=== PATIENT | female | born 1970 | race Caucasian/White ===

== ENCOUNTER 2017-01-20 19:30 | Observation (INO) | payer OTHER ==
[~2017-01-20] VITALS: Ht 167.6 cm; Wt 87.0 kg
--- NOTE | 2017-01-21 19:59 | ER ---
ADMIT: 01/20/2017 RM/LOC: 432 [facility] MR#: [id number] [id number] [facility] [address] [place], [place] [id number] [address] [place] [address] Emergency Room Report SEX: F AGE: 46 : 1970 DATE: 01/20/2017 The patient is a 46-year-old female with a history of diabetes, but brought here by EMS because of altered mental status, hypoglycemia, and seizure. Allegedly, noticed that the patient was weak at home and while he got into room after some time, he noticed that the patient is altered on the floor. He mentions he did not hear any fall, called ambulance and per EMS, the patient had very low blood sugar, was given 1 amp of D50. After that, the patient had generalized clonic seizing, shaking all over and received 2 doses of 5 mg of diazepam and per EMS, the seizing stopped, but the patient vomited meanwhile and after that, they heard the gurgling sound during the breathing. Per EMS en route, the patient had O2 saturation of mid 80s to high 80s and was put on non-rebreather mask, which went to low 90s. In the ER, the patient had clenched teeth with closed eyes, but has good gag reflex. The patient did not let us open the mouth. We tried different ways just trying to suction the mouth. The patient had O2 saturation of mid 80s in room air and in the non- rebreather mask, went to 93%. Blood pressure systolic was 110 and on capnography, the patient had CO2 level of 44. The patient received 1 dose of Ativan 1 mg IV, and also the patient's fingerstick blood sugar was checked, which was 70 and the patient received 50 mL of D10 solution bolus. The patient instantly was put on C-collar after coming to the ER and was sent for CT of the head and C-spine. Meanwhile, during all the time before going to the CT, the patient's airway was open with chin-lift and jaw-thrust, mostly with the jaw-thrust. CT of the head and neck was negative for any trauma. Chest x-ray was questionable for possible right lung haziness, infiltration. The patient received 1 L of D5NS. The patient's mental status improved, she opened the eyes and began talking and moving all extremities. The patient was also answering the question and states she could not recall exactly what happened. The patient denied any pain in the neck, in the chest, abdomen, or extremities. The patient mildly complains of frontal headache. The patient had negative urine test. The urine tox was negative, Tylenol level was negative, and aspirin level was negative too. EKG was normal sinus rhythm, and troponin I was negative too. The patient had WBC of 9.2 with hemoglobin of 14.9 and platelets of 34,000, lactic level was 1.8, CK was 118. The patient has sodium of 132 with potassium of 3.9 and bicarb of 23, with an anion gap of 14. Ethanol level was 179. While the patient came, she also had core temperature of 93 degrees and was put on Ricardo Hugger and received IV fluids too and recheck of the core temperature was 97.9. The patient was admitted to PCU for altered mental status, hypoglycemia, hypothermia, hypoxia, aspiration pneumonitis versus aspiration pneumonia, for further followups and treatments. Estevan Jaeger MD/ apple JOB #: [id number] CC: Mike Duffy MD, Attending Physician ADMIT: 01/20/2017 RM/LOC: 432 [facility] MR#: [id number] [address] [place] [address] [place] [phone] [address] [place] [address] Emergency Room Report SEX: F AGE: 46 : 1970 Mike Duffy MD, Family Physician
[2017-01-23] MEDS ORDERED: IMITREX DPS100 MG PO (10:39)
[2017-01-23] MEDS ORDERED: LIPITOR DPS20 MG PO (10:39)
[2017-01-23] MEDS ORDERED: INDERAL-DPS20 MG PO (10:40)
[2017-01-23] MEDS ORDERED: ZESTORETIC 20/11 TAB PO (10:40)
[2017-01-23] MEDS ORDERED: EFFEXOR37.5 MG PO (10:41)
[2017-01-23] MEDS ORDERED: LEVEMIR100 UNIT/1 SQ (10:41)
[2017-01-23] MEDS ORDERED: HUMALOG100 UNIT/1 SQ (10:42)
[2017-01-23] MEDS ORDERED: AUGMENTIN 875-1 EACH PO (10:43)
[2017-01-23] MEDS ORDERED: ZITHROMAX250 MG PO (10:44)
--- NOTE | 2017-02-01 08:30 | HP ---
ADMIT: 01/20/2017 RM/LOC: 432 [facility] MR#: [id number] [address] [id number] [address] [place] [address] History and Physical SEX: F AGE: 46 : 1970 DATE OF SERVICE: CHIEF COMPLAINT: Unresponsive. HISTORY OF PRESENT ILLNESS: The patient is a 46-year-old female with a history of type 1 diabetes, who was brought into the emergency room by squad because of altered mental status and unresponsiveness. Her noticed last night the patient was weak and seemed disoriented. After some time, he noticed that the patient had fallen to the floor and was not making any sense. He says he did not hear or see any fall, but he called the ambulance. Per EMS, the patient had very low blood sugar in the field so she was given one amp of D50. En route to the hospital, the patient had a generalized clonic seizure. Received two doses of 5 mg of diazepam but unfortunately vomited in the ambulance. Per report, they heard some gurgling during the sound of her breathing and suspect that she may have possibly aspirated. On arrival to the emergency room, O2 saturation was in the 80s which corrected on a non- rebreather mask. She was resuscitated, given additional IV dextrose and returned to baseline cognition. She was awake, alert, and oriented in the emergency room though was still requiring oxygen due to decreased oxygen saturations. In the emergency room, they also did a CT of the head, neck, which was normal. The patient states she does not remember anything other than waking up in the hospital this morning. In the emergency room, the remainder of her workup including test, urine tox screen, Tylenol, aspirin levels and electrolytes were normal with the exception of a low blood sugar and an ethanol level of 179. She is admitted for her type 1 diabetes, hypoglycemia, seizures, and suspected aspiration pneumonia versus pneumonitis. PAST MEDICAL HISTORY: Type 1 diabetes, migraines, and hypertension. MEDICATIONS: The patient is on Lantus b.i.d. and Humalog with meals. This was changed 2 months ago from a regimen that included Levemir once daily and NovoLog. ALLERGIES: NO KNOWN MEDICAL ALLERGIES. FAMILY HISTORY: Noncontributory. REVIEW OF SYSTEMS: The patient does note that she has had some hypoglycemic episodes before but has never had any seizures. She denies any recent fevers, chills, cough, chest pain, shortness of breath, abdominal pain. Denies any visual changes. No throat pain. Denies any urinary symptoms. No other weakness or confusion other than last night. PHYSICAL EXAMINATION: VITAL SIGNS: Temp 98.9, pulse 103, respirations 24, blood pressure 121/80, O2 saturation 95% on 4 L of O2. GENERAL: The patient is awake, alert, and oriented x3. She is in no acute distress. HEENT: Extraocular muscles intact. Mucous membranes are moist. NECK: No lymphadenopathy. No JVD or carotid bruit. ADMIT: 01/20/2017 RM/LOC: 432 [facility] MR#: [id number] [address] [place] [address] [place] [id number] [address] [place] [id number] History and Physical SEX: F AGE: 46 : 1970 CARDIOVASCULAR: Regular rhythm and rate. No murmurs, rubs, or gallops. PULMONARY: The patient does have some mild bilateral crackles in the mid lung barrera. ABDOMEN: Soft, nontender, nondistended. EXTREMITIES: No clubbing, cyanosis, or edema. Cap refills less than 3 seconds. LABS AND IMAGING: Hemoglobin is 13.6, white count 13.8, and platelets were 300. Sodium 132, potassium 4.2, chloride 101, bicarb 22, BUN 7, creatinine 0.6. Blood sugars overnight were 164, 200, 248, and 283. ASSESSMENT: 1. Type 1 diabetic on insulin regimen. 2. Hypoglycemia with seizures. 3. Aspiration pneumonia versus pneumonitis. 4. Hypoxia. PLAN: We held her home insulin overnight. I would put her back on a sliding scale with meals. Check blood sugars q.a.c. and at bedtime. We will continue D5 normal saline TKO while monitoring her blood sugars. The patient is taking p.o. and tolerating orals without any risk of additional vomiting as her mentation has cleared, so we covered her for possible aspiration pneumonia with Augmentin. We will follow up chest x-ray this morning. Gil Soria MD Resident / Mike Duffy MD / modl JOB #: [id number] CC: Mike Duffy, Attending Physician Mike Duffy, Family Physician
== END 2017-01-22 09:00 | disposition home or self-care (01) ==
LOC: ER 19:30 → 4PCU 22:22
PROVIDERS: ADMIT Family Medicine
DX: E10.649 Type 1 diabetes mellitus with hypoglycemia without coma (principal); G40.909 Epilepsy, unspecified, not intractable, without status epilepticus; J40 Bronchitis, not specified as acute or chronic; I10 Essential (primary) hypertension; G43.909 Migraine, unspecified, not intractable, without status migrainosus; Z79.4 Long term (current) use of insulin; R91.8 Other nonspecific abnormal finding of lung field